=== PATIENT | male | born 1930 | race Caucasian/White ===

== ENCOUNTER 2016-09-27 05:53 | Inpatient (IN) | payer MEDICARE, OTHER ==
[2016-09-27] MEDS ORDERED: LIDOCAINE 1% 5 ML SDV ONE (06:14)
[2016-09-27] MEDS ORDERED: BUPIVACAINE/EPI 0.5% 30 ML SDV ONE (06:50)
[2016-09-27] MEDS ORDERED: CALCIUM CHLORIDE 1 GM/10 ML INJ ONE (06:50)
[2016-09-27] MEDS ORDERED: THROMBIN (RECOMBINANT) 5,000 UNIT VIAL TP ONE (06:50)
[2016-09-27] MEDS ORDERED: BACITRACIN 50,000 UNITS/10 ML SYR IRR ONE ×2 (06:51→06:58)
[2016-09-27] MEDS ORDERED: POLYMYXIN B SULFATE 500,000 UNIT/10 ML SYR IRR ONE ×2 (06:51→06:58)
[2016-09-27] MEDS ORDERED: ceFAZolin 2 GM/DEXTROSE 100 ML IV ONE (07:00)
[2016-09-27] MEDS ORDERED: ROPI/epiNEPH/KETOROLAC/morphINE JOINT COCKTAIL IU ONE (07:00)
[2016-09-27] MEDS ORDERED: CHLORHEXIDINE GLUC HIBICLENS 118 ML BTL TP ONE (07:00)
[2016-09-27] MEDS ORDERED: ACETAMINOPHEN 325 MG TAB PO ONE (07:00)
[2016-09-27] MEDS ORDERED: DEXAMETHASONE 4 MG/ML VIAL IVP ONE (07:00)
[2016-09-27] MEDS ORDERED: FAMOTIDINE 20 MG TAB PO ONE (07:00)
[2016-09-27] MEDS ORDERED: PROPOFOL 200 MG/20 ML VIAL ONE (07:11)
[2016-09-27] MEDS ORDERED: MIDAZOLAM 2 MG/2 ML VIAL ONE (07:11)
[2016-09-27 07:22] LABS: INR 1.07 (0.83-1.16); PROTIME(PATIENT) 13.8 SEC (12.0-15.0)
[2016-09-27] MEDS ORDERED: LIDOCAINE 2% 5 ML SDV ONE (07:38)
[2016-09-27] MEDS ORDERED: epHEDrine SULFATE 10 MG/ML SYR ONE (07:38)
[2016-09-27] MEDS ORDERED: ROPIVACAINE HCL 150 MG/30 ML INJ ONE (08:05)
[2016-09-27] MEDS ORDERED: ALPRAZolam 1 MG TAB PO PRN (09:17)
--- NOTE | 2016-09-27 09:17 | POSTOPPROG ---
Post Op Note Date of Operation: 09/27/16 Surgeon: Gay Patel [employer] Instructor: omar Anesthesiologist: joey Anesthesia: Epidural Pre-op Diagnosis: r knee oa Procedure: r tkr Inf/Abcess present in the surg proc area at time of surgery?: No Depth: Deep Incisional (Fascial) EBL: 50-100
[2016-09-27] MEDS ORDERED: MAGNESIUM HYDROXIDE 30 ML UDCUP PO PRN (09:18)
[2016-09-27] MEDS ORDERED: LACTULOSE 20 GM/30 ML UDCUP PO PRN (09:18)
[2016-09-27] MEDS ORDERED: TAPENTADOL HCL 50 MG TAB PO PRN (09:18)
[2016-09-27] MEDS ORDERED: CYCLOBENZAPRINE 10 MG TAB PO PRN (09:18)
[2016-09-27] MEDS ORDERED: ONDANSETRON DISINTEGRATING 4 MG TAB PO PRN (09:18)
[2016-09-27] MEDS ORDERED: diphenhydrAMINE 25 MG CAP PO PRN (09:18)
[2016-09-27] MEDS ORDERED: ONDANSETRON 4 MG/2 ML VIAL IVP PRN (09:18)
[2016-09-27] MEDS ORDERED: PHARMACY PAIN CONSULT 1 EA MISC PRN (09:18)
[2016-09-27] MEDS ORDERED: METOCLOPRAMIDE 10 MG/2 ML VIAL IVP PRN (09:18)
[2016-09-27] MEDS ORDERED: BISACODYL 10 MG SUPP PR PRN (09:18)
[2016-09-27] MEDS ORDERED: DIPHENOXYLATE/ATROPINE LOMOTIL 1 TAB PO PRN (09:18)
[2016-09-27] MEDS ORDERED: PROMETHAZINE HCL 25 MG SUPPR PR PRN (09:18)
[2016-09-27] MEDS ORDERED: TEMAZEPAM 15 MG CAP PO PRN (09:18)
[2016-09-27] MEDS ORDERED: PROMETHAZINE HCL 25 MG/ML INJ IVP PRN (09:18)
[2016-09-27] MEDS ORDERED: POLYETHYLENE GLYCOL 3350 17 GM PKT PO PRN (09:18)
[2016-09-27] MEDS ORDERED: oxyCODONE IR 5 MG TAB PO PRN (09:18)
[2016-09-27] MEDS ORDERED: LR 1,000 ML IV SCH (09:30)
--- NOTE | 2016-09-27 10:02 | GOP ---
DATE OF OPERATION: 09/27/2016 SURGEON: Gay Patel MD ANESTHESIA: By epidural nerve block plus adductor block per surgeon's request. PREOPERATIVE DIAGNOSIS: Right knee osteoarthritis. POSTOPERATIVE DIAGNOSIS: Right knee osteoarthritis. PROCEDURE PERFORMED: Right total knee arthroplasty. FINDINGS: INDICATIONS: This is an 86-year-old male with a long history of right knee pain worsening with use and with time despite multiple conservative measures. He wishes to have surgery in order to resolve the problem. DESCRIPTION OF PROCEDURE: Patient brought to the operating room after the right side had been ident ified as the correct side by the patient, nurse and physician. Once in the operating room, he was g iven epidural nerve block. He was then placed supine. He had a tourniquet placed around the upper portion of the right thigh, with the right lower extremity sterilely prepped and draped in the usual fashion using GSI solution. Once prepped and draped, limb was exsanguinated, tourniquet inflated t o 250 mmHg. An incision was made on the anterior portion of the knee 1 handbreadth above the level of the patella with sharp dissection carried down through the skin and subcutaneous layers with blee ding controlled using electrocautery. A medial parapatellar incision was made through the extensor mechanism with the patella brought to the side but not everted. The ACL along with the medial and l ateral meniscus and the abundant amount of fat pad was removed from the anterior portion of the knee . He was noted to have vaae-ge-nsig osteoarthritic changes to the medial compartment and grade 3 ch ondral changes throughout the rest of the knee. The knee was bent to 90 degrees, and a drill hole w as made 1 cm anterior to the intercondylar notch. We then measured the guide placed within the knee . It was set to remove 8 mm of bone from the distal end of the femur and set in 5 degrees of valgus . Once pinned into place, the guide was removed. An oscillating saw was used to remove the distal portion of the femur. Once achieving a flat cut, osteotome was used to remove cartilage from the po sterior femoral condyles and a sizing guide placed on the cut surface of bone. Noted that a size 7 seemed to fit best without notching the anterior cortex of the femur. Therefore drill holes were ma de and a size 7, 4 in 1 cutting block was put into place. The anterior-posterior and chamfer cuts w ere made, and a size 7 trial was put in place noted to fit securely. The knee was able to achieve f ull extension and lug holes were drilled for a femoral component. Femoral trial was then removed. The knee was brought to maximal flexion with the tibia subluxed anteriorly. An external tibial guid e was put into place, set in neutral varus valgus relative to the ankle and slight posterior slope. It was pinned into place. Set to remove 4 mm of bone from the low side of the tibia. Once pinned into place, the guide had been removed. A drop andrew was placed through the guide and a locking pin w as placed in the tibial cutting guide. Oscillating saw was used to remove the proximal portion of t he tibia achieving a flat surface. Trial femur tibia and poly liner was put into place, noted to ac hieve full extension. The trials were removed. Multiple sizers were placed on the cut surfaces of the tibia, and a size 6 seemed to fit best. It was placed in slight external rotation, pinned into place and a keel punch passed through the guide. The trial was completely removed. The knee was br ought to full extension. Towel clips were used to madeline the patella, which was measured to be 28 mm in thickness. An oscillating saw was used to remove the posterior portion of the patella leaving 1 5 mm of bone. Multiple sizes were trialed onto the cut surfaces of the patella, noted a 36 mm beyer lar button seemed to fit best and lug holes were drilled for a 36 mm button. All cut surfaces of yanet ne were then thoroughly irrigated with antibiotic solution using pulsatile lavage while cement was b eing mixed. Once cement was doughy, it was placed in the proximal portion of the tibia with a size 6 triathlon tibial base plate put into place with excess cement removed using [place] elevator. Cemen t was then placed on the posterior skids of the femoral component with cement placed on the anterior and distal ends of the cut surfaces of the femur, and a size 7 cruciate retaining triathlon femoral component from [place] was put in place and excess cement removed using [place] elevator. Trial line r was placed in the tibial tray. The knee was brought to full extension under pressurized cement. Cement was placed on the cut surfaces of the patella with a 36 mm symmetric patellar button put into place and excess cement removed using [place] elevator. While the cement was hardening joint cocktai l was injected along the periosteum of the femur, tibia and the posterior capsule. Once cement had hardened, any excess cement was removed using a combination of rongeur and osteotome. Multiple tria ls were placed in the tibial tray and a 9 mm insert seemed to fit best. Therefore, a 9 mm polyethyl michelle liner was placed into the tibial tray. Once in place, the tourniquet was deflated at 49 minutes . Bleeding was controlled using electrocautery. The wound was closed in layers with 0 Vicryl sutur e for the extensor mechanism with plasma gel placed intra-articularly. 0 Vicryl and 2-0 Vicryl sutu re for the subcutaneous layers with plasma gel placed external to the extensor mechanism, and a 3-0 V-Loc suture in a running subcuticular stitch was used to close the skin. The wound was dressed wit h Steri-Strips, Xeroform, 4x4s, and Kerlix. Leg was completely undraped in the operating room and t ourniquet removed from the thigh and an Juan wrap placed around the knee. He was then transferred on to a stretcher, and sent to recovery room in good condition where he underwent an adductor nerve blo ck. TOURNIQUET TIME: 49 minutes. /[id number]/MODL
[2016-09-27] MEDS: ACETAMINOPHEN 325 MG TAB PO SCH ×2 (13:00→17:41)
[2016-09-27] MEDS: KETOROLAC 30 MG/1 ML SDV IVP SCH ×2 (13:01→17:42)
[2016-09-27] MEDS ORDERED: ceFAZolin 2 GM/DEXTROSE 100 ML IV SCH (14:00)
[2016-09-27] MEDS: ceFAZolin 2 GM in D5W 100 ML IV SCH ×2 (15:47→21:21)
[2016-09-27] MEDS: FAMOTIDINE 20 MG TAB PO SCH (20:49)
[2016-09-27] MEDS: ALPRAZolam 1 MG TAB PO SCH (20:49)
[2016-09-27] MEDS: SENNOSIDES/DOCUSATE SODIUM TAB PO SCH (20:50)
[2016-09-28] MEDS: KETOROLAC 30 MG/1 ML SDV IVP SCH ×3 (00:04→13:19)
[2016-09-28] MEDS: ACETAMINOPHEN 325 MG TAB PO SCH ×5 (00:05→23:42)
[2016-09-28 06:00] LABS: HEMATOCRIT 41.5 % (40.0-51.0); HEMOGLOBIN 13.7 g/dL (13.7-17.5)
[2016-09-28 06:11] LABS: ANION GAP 7 mEq/L (8-16); CALCIUM 8.3 mg/dL (8.5-10.4); CARBON DIOXIDE 27 mEq/l (22-31); CHLORIDE 100 mEq/L (97-110); CREATININE 1.3 mg/dL (0.7-1.3); GLOMERULAR FILTRATION RATE 52; GLUCOSE 118 mg/dL (70-100); POTASSIUM 4.6 mEq/L (3.5-5.2); SODIUM 134 mEq/L (134-144)
--- NOTE | 2016-09-28 10:29 | SOAPPROG ---
SOAP Progress Note Assessment/Plan: Assessment: POD 1 Plan: - as planned, 09/28/16 10:28 Subjective: Pain controlled with tylenol, no issues Objective: Vital Signs Temp Pulse Resp BP Pulse Ox 36.4 C 55 L 15 129/67 H 95 09/28/16 08:00 09/28/16 08:00 09/28/16 08:00 09/28/16 08:00 09/28/16 08:00 Laboratory Results 09/28/16 05:44 09/28/16 05:44 09/27/16 09/28/16 09/29/16 05:59 05:59 05:59 Intake Total 1580 Output Total 475 200 Balance 1105 -200 PT 13.8 SEC (12.0-15.0) 09/27/16 06:05 INR 1.07 (0.83-1.16) 09/27/16 06:05 Dressing CDI, calf NT, neg hommans bilat - Time Spent With Patient Time Spent With Patient: 15 - Pending Discharge Pending Discharge Within 24 Hours: No Pending Discharge Within 48 Hours: Yes Pending Discharge Date: 09/30/16 Pending Discharge Time: 11:00 ICD10 Worksheet Patient Problems: Problems Problem Status Onset Arthritis of right knee Acute - ICD10 Problem Qualifiers (1) Arthritis of right knee
[2016-09-28] MEDS: ATORVASTATIN CALCIUM 40 MG TAB PO SCH (10:46)
[2016-09-28] MEDS: FAMOTIDINE 20 MG TAB PO SCH (10:47)
[2016-09-28] MEDS: WARFARIN SODIUM 5 MG TAB PO SCH (10:49)
[2016-09-28] MEDS: SENNOSIDES/DOCUSATE SODIUM TAB PO SCH ×2 (10:49→21:17)
[2016-09-28] MEDS: ENOXAPARIN 40 MG/0.4 ML SYR SC SCH (10:51)
[2016-09-28] MEDS ORDERED: POLYETHYLENE GLYCOL 3350 17 GM PKT PO PRN (12:55)
[2016-09-28] MEDS ORDERED: LACTULOSE 20 GM/30 ML UDCUP PO PRN (12:55)
[2016-09-28] MEDS ORDERED: MAGNESIUM HYDROXIDE 30 ML UDCUP PO PRN (12:55)
[2016-09-28] MEDS ORDERED: BISACODYL 10 MG SUPP PR PRN (12:55)
[2016-09-28] MEDS ORDERED: SENNOSIDES/DOCUSATE SODIUM TAB PO SCH (13:00)
[2016-09-28] MEDS: PSYLLIUM METAMUCIL 1 PKT PO SCH (15:39)
[2016-09-28] MEDS: ALPRAZolam 1 MG TAB PO SCH (21:16)
[2016-09-29] MEDS: ACETAMINOPHEN 325 MG TAB PO SCH ×3 (05:25→18:16)
[2016-09-29 05:31] LABS: HEMATOCRIT 37.9 % (40.0-51.0); HEMOGLOBIN 12.6 g/dL (13.7-17.5)
[2016-09-29 05:51] LABS: INR 1.17 (0.83-1.16); PROTIME(PATIENT) 14.9 SEC (12.0-15.0)
[2016-09-29 07:37] VITALS: RESP 18
[2016-09-29] MEDS: SENNOSIDES/DOCUSATE SODIUM TAB PO SCH ×2 (08:51→20:31)
[2016-09-29] MEDS: PSYLLIUM METAMUCIL 1 PKT PO SCH (08:52)
[2016-09-29] MEDS: ENOXAPARIN 40 MG/0.4 ML SYR SC SCH (08:52)
[2016-09-29] MEDS: FAMOTIDINE 20 MG TAB PO SCH (08:52)
[2016-09-29] MEDS: ATORVASTATIN CALCIUM 40 MG TAB PO SCH (08:52)
[2016-09-29] MEDS: WARFARIN SODIUM 5 MG TAB PO SCH (08:52)
--- NOTE | 2016-09-29 12:48 | SOAPPROG ---
SOAP Progress Note Assessment/Plan: Assessment: POD 2 Plan: - as planned, 09/28/16 10:28 09/29/16 12:47 Subjective: Doing well, minimal pain, did some stairs today Objective: Vital Signs Temp Pulse Resp BP Pulse Ox 36.8 C 68 18 148/68 H 97 09/29/16 07:36 09/29/16 07:36 09/29/16 07:36 09/29/16 07:36 09/29/16 07:36 Laboratory Results 09/29/16 05:03 09/28/16 05:44 09/28/16 09/29/16 09/30/16 05:59 05:59 05:59 Intake Total 1580 1650 Output Total 475 553 Balance 1105 1097 PT 14.9 SEC (12.0-15.0) 09/29/16 05:03 INR 1.17 (0.83-1.16) H 09/29/16 05:03 Dressing clean, wound dry, calf NT, NVI - Time Spent With Patient Time Spent With Patient: 20 - Pending Discharge Pending Discharge Within 24 Hours: Yes Pending Discharge Within 48 Hours: No Pending Discharge Date: 09/30/16 Pending Discharge Time: 11:00 ICD10 Worksheet Patient Problems: Problems Problem Status Onset Arthritis of right knee Acute - ICD10 Problem Qualifiers (1) Arthritis of right knee
[2016-09-29] MEDS: ALPRAZolam 1 MG TAB PO SCH (20:27)
[2016-09-30] MEDS: ACETAMINOPHEN 325 MG TAB PO SCH ×3 (00:10→12:17)
[2016-09-30 05:57] LABS: INR 1.21 (0.83-1.16); PROTIME(PATIENT) 15.3 SEC (12.0-15.0)
[2016-09-30] MEDS: ENOXAPARIN 40 MG/0.4 ML SYR SC SCH (08:26)
[2016-09-30] MEDS: FAMOTIDINE 20 MG TAB PO SCH (08:26)
[2016-09-30] MEDS: ATORVASTATIN CALCIUM 40 MG TAB PO SCH (08:26)
[2016-09-30] MEDS: WARFARIN SODIUM 5 MG TAB PO SCH (08:26)
--- NOTE | 2016-09-30 08:28 | PDIAF ---
- Diagnosis Code Status: Full Code - Medication Management Discharge Medications: Medications to Continue on Transfer ALPRAZolam [Xanax 1 MG (*)] 0.5 mg PO HS PRN 09/12/16 [Last Taken Unknown] ALPRAZolam [Xanax 1 MG (*)] 1 mg PO HS 09/12/16 [Last Taken 09/26/16 20:00] Acetaminophen [Tylenol ES 500 mg (*)] 500 mg PO HS 09/12/16 [Last Taken 22:00] Atorvastatin Calcium [Lipitor 40 mg (*)] 40 mg PO DAILY 09/12/16 [Last Taken ] Warfarin Sodium [Coumadin 5MG (*)] 2.5 mg PO TUSA@09/12/16 [Last Taken ] Warfarin Sodium [Coumadin 5MG (*)] 5 mg PO SUMOWETHFR@09/12/16 [Last Taken ] Acetaminophen [Tylenol 325mg (*)] 650 mg PO Q6HRS #0 tab 09/30/16 [Last Taken Unknown] oxyCODONE IR [Oxycodone Ir (*)] 5 - 10 mg PO Q3HRS PRN #0 tab 09/30/16 [Last Taken Unknown] Discharge Medications: Refer to the Discharge Home Medication list for PRN reason. PICC Care - Routine: N/A - Orders Services needed: Physical Therapy Diet Recommendation: no restrictions on diet Diet Texture: Regular Texture Diet Wound Care Instructions: Keep dressing on, may shower, remove in office - Follow Up Care Current Providers and Referrals: FRANCISCO MAE [Primary Care Provider] -
[2016-09-30] MEDS: PSYLLIUM METAMUCIL 1 PKT PO SCH (10:41)
[2016-09-30] MEDS: SENNOSIDES/DOCUSATE SODIUM TAB PO SCH (10:41)
--- NOTE | 2016-09-30 11:54 | PDIAF ---
- Diagnosis Diagnosis: R knee arthritis Code Status: Full Code - Medication Management Discharge Medications: Medications to Continue on Transfer ALPRAZolam [Xanax 1 MG (*)] 0.5 mg PO HS PRN 09/12/16 [Last Taken Unknown] ALPRAZolam [Xanax 1 MG (*)] 1 mg PO HS 09/12/16 [Last Taken 09/26/16 20:00] Acetaminophen [Tylenol ES 500 mg (*)] 500 mg PO HS 09/12/16 [Last Taken 22:00] Atorvastatin Calcium [Lipitor 40 mg (*)] 40 mg PO DAILY 09/12/16 [Last Taken ] Warfarin Sodium [Coumadin 5MG (*)] 2.5 mg PO TUSA@09/12/16 [Last Taken ] Warfarin Sodium [Coumadin 5MG (*)] 5 mg PO SUMOWETHFR@09/12/16 [Last Taken ] Acetaminophen [Tylenol 325mg (*)] 650 mg PO Q6HRS #0 tab 09/30/16 [Last Taken Unknown] oxyCODONE IR [Oxycodone Ir (*)] 5 - 10 mg PO Q3HRS PRN #0 tab 09/30/16 [Last Taken Unknown] Discharge Medications: Refer to the Discharge Home Medication list for PRN reason. PICC Care - Routine: N/A - Orders Services needed: Registered Nurse, Physical Therapy, Occupational Therapy Diet Recommendation: no restrictions on diet Diet Texture: Regular Texture Diet Wound Care Instructions: Keep dressing on, may shower, remove in office Activity/Weight Bearing Restrictions: WBAT Additional: Will follow up on office 2 wks, has appt scheduled - Follow Up Care Current Providers and Referrals: FRANCISCO MAE [Primary Care Provider] -
[2016-09-30 12:10] VITALS: BP 138/66; PULSE 69; TEMP 98.5; O2SAT 95
[2016-10-01] MEDS ORDERED: WARFARIN SODIUM 5 MG TAB PO SCH (09:00)
== END 2016-09-30 13:50 | disposition home health service (06) | DRG 470 ==
LOC: F3N 05:53
PROVIDERS: ADMIT Orthopaedic Surgery; ATTEND Orthopaedic Surgery
PROC: 0SRC0J9 Replacement of Right Knee Joint with Synthetic Substitute, Cemented, Open Approach (ICD-10-PCS; principal; 2016-09-27 07:15)
DX: M17.11 Unilateral primary osteoarthritis, right knee (principal); I48.91 Unspecified atrial fibrillation; Z86.73 Personal history of transient ischemic attack (TIA), and cerebral infarction without residual deficits
CPT/HCPCS: 97110-GP; 97116-GP; 97161-GP; 97165-GO; 97530-GP; 97535-GO; C1713; G8978-GP-CJ; G8979-GP-CI; G8980-GP-CI; G8987-GO-CJ; G8988-GO-CI; G8989-GO-CI; J0171; J0690; J1100; J1650; J1885; J2250; J2704; J2795; L1832